=== PATIENT | female | born 1965 | race Caucasian/White ===

== ENCOUNTER → 2019-12-26 17:59 | Outpatient (CLI) | payer OTHER, SELFPAY ==
--- NOTE | ~2019-12-26 | MM_ITS ---
EXAMINATION: MM screening baljit BI w sathish HISTORY: Screening TECHNIQUE: Craniocaudal and mediolateral oblique 3-D tomosynthesis images were obtained and synthetic 2-D images were generated. CAD analysis was submitted and interpreted. COMPARISON: No prior mammogram is available for comparison at this institution. BREAST PARENCHYMAL COMPOSITION: There are scattered areas of fibroglandular density. FINDINGS: There is no evidence of suspicious mass, calcification, or architectural distortion to sugg est malignancy in either breast. There has been no suspicious interval change. IMPRESSION: 1. No mammographic evidence of malignancy. 2. Recommend routine screening mammography in one year. BI-RADS Category 1: Negative Reviewed, dictated and finalized at location A.
== END ==
PROVIDERS: Visit Provider Obstetrics & Gynecology
DX: Z12.31 Encounter for screening mammogram for malignant neoplasm of breast (principal)
CPT/HCPCS: 77063; 77067

== ENCOUNTER → 2021-02-01 13:12 | Outpatient (CLI) | payer OTHER, SELFPAY ==
--- NOTE | ~2021-02-01 | MM_ITS ---
EXAMINATION: MM screening baljit BI w sathish HISTORY: Screening mammogram TECHNIQUE: Craniocaudal and mediolateral oblique 3-D tomosynthesis images were obtained and synthetic 2-D images were generated. CAD analysis was submitted and interpreted. COMPARISON: 12/26/2019 BREAST PARENCHYMAL COMPOSITION: There are scattered areas of fibroglandular density. FINDINGS: RIGHT BREAST: There is no evidence of suspicious mass, calcification, or architectural distortion to suggest malignancy. There has been no significant interval change. LEFT BREAST: A low-density mass is present in the anterior third of the lower breast at the 6:00 loca tion 4 cm from the nipple. IMPRESSION: 1. Left breast mass. 2. Additional mammographic views and possible breast ultrasound are recommended. BI-RADS Category 0: Incomplete: Needs additional imaging evaluation. Reviewed, dictated and finalized at location A. CUTTING MACHINE SET UP OPERATOR IMPRESSION: 1. Left breast mass. 2. Additional mammographic views and possible breast ultrasound are recommended . BI-RADS Category 0: Incomplete: Needs additional imaging evaluation.
== END ==
PROVIDERS: PCP Internal Medicine; Visit Provider Internal Medicine
DX: Z12.31 Encounter for screening mammogram for malignant neoplasm of breast (principal); R92.8 Other abnormal and inconclusive findings on diagnostic imaging of breast
CPT/HCPCS: 77063; 77067

== ENCOUNTER → 2021-03-05 07:49 | Outpatient (CLI) | payer OTHER, SELFPAY ==
--- NOTE | ~2021-03-05 | MMUS_ITS ---
EXAMINATION: MM diagnostic baljit LT w sathish, US breast LT limited HISTORY: Left breast mass on screening mammogram TECHNIQUE: Additional 3-D tomosynthesis images of the left breast were performed and synthetic 2-D im ages were generated. CAD analysis was submitted and interpreted. High resolution limited left breast ultrasound was performed. COMPARISON: 02/01/2021, 12/26/2019, 12/14/2017 BREAST PARENCHYMAL COMPOSITION: There are scattered areas of fibroglandular density. FINDINGS: MAMMOGRAPHIC FINDINGS: There is a 6 mm oval, circumscribed, low density mass in the anterior third of the breast at the 6:00 location 3.5 cm from the nipple. No suspicious calcification or architectural distortion are identif ied. ULTRASOUND: There is a 5 mm cyst at the 6:00 location 2.5 cm from the nipple in the left breast corresponding to the mammographic finding. No suspicious cystic or solid mass is identified. IMPRESSION: 1. No mammographic or sonographic evidence of malignancy. 2. Recommend routine screening mammography in one year. BI-RADS Category 2: Benign finding(s). Reviewed, dictated and finalized at location A. ECT MANAGEMENT PROFESSIONAL IMPRESSION: 1. No mammographic or sonographic evidence of malignancy. 2. Recommend routine screening mammography in one year. BI-RADS Category 2: Benign finding(s).
== END ==
PROVIDERS: PCP Internal Medicine; Visit Provider Internal Medicine
DX: R92.8 Other abnormal and inconclusive findings on diagnostic imaging of breast (principal)
CPT/HCPCS: 76642; 77061; 77065; G0279

== ENCOUNTER → 2021-04-23 01:47 | Outpatient (CLI) | payer OTHER, SELFPAY ==
[2021-04-23 17:21] LABS: SARS-CoV-2 RNA PCR Negative
== END ==
PROVIDERS: PCP Internal Medicine; Visit Provider Internal Medicine
DX: R50.9 Fever, unspecified (principal); Z20.822 Contact with and (suspected) exposure to COVID-19
CPT/HCPCS: C9803; U0003; U0005

== ENCOUNTER 2021-04-23 09:46 | Outpatient (CLI) | payer OTHER, SELFPAY ==
[2021-04-23 11:02] LABS: Basophils Absolute Auto 0.1 K/mm3 (0.0-0.1); Basophils Percent Auto 0.8 % (0.2-1.2); Eosinophils Absolute Auto 0.2 K/mm3 (0-0.3); Eosinophils Percent Auto 2.5 % (0-4.4); Hematocrit 46.5 % (37.0-47.0); Hemoglobin 15.2 g/dL (12.0-15.0); Immature Granulocyte Absolute 0.06 K/mm3 (0.00-0.031); Immature Granulocyte Percent A 0.8 % (0-0.5); Lymphocytes Absolute Auto 1.45 K/mm3 (0.9-3.2); Lymphocytes Percent Auto 19.2 % (18.3-44.2); Mean Corpuscular HGB Conc 32.7 g/dl (32-36); Mean Corpuscular Volume 94.9 fl (80-100); Monocytes Absolute Auto 0.7 K/mm3 (0.1-0.6); Monocytes Percent Auto 8.7 % (2.6-8.5); Neutrophils Absolute Auto 5.1 K/mm3 (1.3-6.7); Platelet Count Result 391 k/mm3 (150-375); Red Cell Distribution Width 12.4 % (11.5-14.5); White Blood Count 7.6 K/mm3 (4.5-10.0)
[2021-04-23 11:18] LABS: Alanine Aminotransferase 61 U/L (4-35); Albumin Level 4.5 g/dL (3.5-5.1); Alkaline Phosphatase 103 U/L (38-126); Anion Gap 9 mmol/L (8-16); Aspartate Amino Transferase 60 U/L (14-36); Bilirubin,Total 0.6 mg/dL (0.2-1.3); Blood Urea Nitrogen 21 mg/dL (7-17); Calcium 9.8 mg/dL (8.4-10.2); Carbon Dioxide 26 mmol/L (22-30); Chloride 103 mmol/L (98-107); Estimated Glomerular Filt Rate > 60; Glucose 106 mg/dL (65-110); Potassium 4.5 mmol/L (3.4-5.0); Sodium 138 mmol/L (137-145)
[2021-04-23 11:22] LABS: Add Urine Microscopic? YES; Appearance Urine Clear (Clear); Bacteria Urine Trace /hpf; Bilirubin Urine Negative (Negative); Color Urine Yellow (Yellow); Glucose Urine UA Negative (Negative); Ketones Urine Negative (Negative); Leukocyte Esterase Ur Negative LEU/UL (Negative); Mucus Urine Rare /lpf; Nitrate Urine Negative (Negative); Protein Urine Negative (Negative); RBC Urine 21-50 /hpf (0-2); Specific Grav Ur 1.026 (1.001-1.035); Squamous Epithelial Cell Urine Many /hpf (Few); Urobilinogen Urine Negative mg/dL (<2.0)
[2021-04-23 11:50] LABS: Blood Urine Negative (Negative)
[2021-04-23 12:29] LABS: Erythrocyte Sedimentation Rate 18 mm/hr (0-20)
== END 2021-04-23 09:47 | disposition home or self-care (01) ==
LOC: ANHLAB 09:49
PROVIDERS: PCP Internal Medicine; Visit Provider Internal Medicine
DX: R50.9 Fever, unspecified (principal)
CPT/HCPCS: 36415; 80053; 81001; 85025; 85652; 87086; C9803; U0003; U0005

== ENCOUNTER 2023-08-28 14:48 | Outpatient (CLI) | payer OTHER, SELFPAY ==
--- NOTE | ~2023-08-28 | MM_ITS ---
EXAMINATION: MM screening baljit BI w sathish HISTORY: Screening TECHNIQUE: Craniocaudal and mediolateral oblique 3-D tomosynthesis images were obtained and synthetic 2-D images were generated. CAD analysis was submitted and interpreted. COMPARISON: Comparison to multiple prior studies sequentially, with oldest reviewed study dated 06/06. BREAST PARENCHYMAL COMPOSITION: Not dense: There are scattered areas of fibroglandular density. FINDINGS: There is no evidence of suspicious mass, calcification, or architectural distortion to sugg est malignancy in either breast. There has been no suspicious interval change. IMPRESSION: 1. No mammographic evidence of malignancy. 2. Recommend routine screening mammography in one year. BI-RADS Category 1: Negative Reviewed, dictated and finalized at location B.
== END 2023-08-28 14:49 ==
LOC: MICIMG 14:49
PROVIDERS: PCP Nurse Practitioner; Visit Provider Nurse Practitioner
DX: Z12.31 Encounter for screening mammogram for malignant neoplasm of breast (principal)
CPT/HCPCS: 77063; 77067

== ENCOUNTER 2024-08-29 15:04 | Outpatient (CLI) | payer OTHER, SELFPAY ==
--- NOTE | ~2024-08-29 | MM_ITS ---
EXAMINATION: MM screening baljit BI w sathish HISTORY: Screening TECHNIQUE: Craniocaudal and mediolateral oblique 3-D tomosynthesis images were obtained and synthetic 2-D images were generated. CAD analysis was submitted and interpreted. COMPARISON: Comparison to multiple prior studies sequentially, with oldest reviewed study dated 06/06. BREAST PARENCHYMAL COMPOSITION: Not dense: There are scattered areas of fibroglandular density. FINDINGS: There is no evidence of suspicious mass, calcification, or architectural distortion to sugg est malignancy in either breast. There has been no suspicious interval change. IMPRESSION: 1. No mammographic evidence of malignancy. 2. Recommend routine screening mammography in one year. BI-RADS Category 1: Negative Reviewed, dictated and finalized at location A.
== END 2024-08-29 15:05 | disposition home or self-care (01) ==
LOC: MICIMG 15:06
PROVIDERS: PCP Nurse Practitioner; Visit Provider Nurse Practitioner
DX: Z12.31 Encounter for screening mammogram for malignant neoplasm of breast (principal)
CPT/HCPCS: 77063; 77067

== ENCOUNTER 2025-01-16 09:24 | Outpatient (CLI) | payer OTHER, SELFPAY ==
--- NOTE | ~2025-01-16 | US_ITS ---
Clinical history:Hypothyroidism EXAM:Ultrasound thyroid TECHNIQUE:Portable static grayscale and color Doppler images were obtained of the thyroid gland. Comparisons:None available FINDINGS: Right thyroid lobe measures 5.4 x 2.8 x 1.7 cm and is enlarged and heterogeneous. Prominent vascular flow. Left thyroid lobe measures 7.8 x 3.3 x 4.2 cm and is enlarged and heterogeneous. Prominent vascular flow. Isthmus is enlarged and heterogeneous. Prominent vascular flow. There is a 1.2 x 1.3 x 1.1 cm heterogeneous solid nodule in the right thyroid lobe. TR 4. There is a 1.1 x 1.1 x 0.6 cm solid heterogeneous nodule in the right thyroid lobe. TR 4. There is a 2.8 x 3.0 x 2.3 cm mixed cystic and solid nodule in the left thyroid lobe. TR 3. A fine-needle aspiration is recommended. IMPRESSION: 1.There is a 2.8 x 3.0 x 2.3 cm mixed cystic and solid nodule in the left thyroid lobe. TR 3. A fine-needle aspiration is recommended. 2.There is a 1.2 x 1.3 x 1.1 cm heterogeneous solid nodule in the right thyroid lobe. TR 4. A follow-up thyroid ultrasound in 6 months is recommended. 3.There is a 1.1 x 1.1 x 0.6 cm solid heterogeneous nodule in the right thyroid lobe. TR 4. A follow-up thyroid ultrasound in 6 months is recommended. 4.The thyroid gland is enlarged and heterogeneous with prominent vascular flow. Consider thyroiditis. Consider a thyroid scan to assess for a cold nodule to assess the need for additional fine-needle aspirations. Reviewed, dictated and finalized at location Q. IMPRESSION: 1.There is a 2.8 x 3.0 x 2.3 cm mixed cystic and solid nodule in the left thyro id lobe. TR 3. A fine-needle aspiration is recommended. 2.There is a 1.2 x 1.3 x 1.1 cm heterogeneous solid nodule in the right thyroid lobe. TR 4. A follow-up thyroid ultrasound in 6 months is recommended. 3.There is a 1.1 x 1.1 x 0.6 cm solid heterogeneous nodule in the right thyroid lobe. TR 4. A follow-up thyroid ultrasound in 6 months is recommended. 4.The thyroid gland is enlarged and heterogeneous with prominent vascular flow. Consider thyroiditis. Consider a thyroid scan to assess for a cold nodule to a ssess the need for additional fine-needle aspirations.
== END 2025-01-16 09:25 | disposition home or self-care (01) ==
PROVIDERS: PCP Nurse Practitioner
DX: E03.9 Hypothyroidism, unspecified (principal); E04.2 Nontoxic multinodular goiter; R53.83 Other fatigue
CPT/HCPCS: 76536